=== PATIENT | female | born 1980 | race Caucasian/White ===

== ENCOUNTER 2021-01-22 13:17 | Emergency (ER) | payer OTHER ==
[2021-01-22 14:08] LABS: HEMOGLOBIN 12.7 gm/dl (12.3-15.3); RED BLOOD COUNT 4.5 M/UL (4.00-5.10)
[2021-01-22 14:40] LABS: BUN/CREATININE RATIO 22 (0-10)
[2021-01-22] MEDS ORDERED: BACTRIM DS TAB1 EACH PO (16:50)
== END 2021-01-22 17:04 | disposition home or self-care (01) ==
LOC: ER1 13:17
PROVIDERS: Physician Assistant
DX: L02.31 Cutaneous abscess of buttock (principal); N39.0 Urinary tract infection, site not specified; I10 Essential (primary) hypertension; Z79.899 Other long term (current) drug therapy; Z20.822 Contact with and (suspected) exposure to COVID-19
CPT/HCPCS: 0240U; 80053; 81001; 82550; 82553; 83735; 83874; 84484; 85025; 87086; 93005; 99283